=== PATIENT | male | born 1945 | race Caucasian/White ===

== ENCOUNTER 2020-08-22 06:04 | Day surgery (SDC) | payer MEDICARE, MEDICAID ==
[2020-08-21 16:48] LABS: BASOPHILS % (AUTO) 0.8 % (0-1); EOSINOPHILS # (AUTO) 0.1 X10'3 (0-0.9); HEMATOCRIT 44.9 % (42.0-52.0); HEMOGLOBIN 14.7 g/dl (14.0-17.9); LYMPHOCYTES # (AUTO) 1.6 X10'3 (1.1-4.8); LYMPHOCYTES % (AUTO) 27.4 % (21-51); MEAN CORPUSCULAR HEMOGLOBIN 26.7 PG (27.0-31.0); MEAN CORPUSCULAR HGB CONC 32.7 g/dL (33.0-36.5); MEAN CORPUSCULAR VOLUME 81.7 FL (78-98); MEAN PLATELET VOLUME 8.9 FL (7.4-10.4); MONOCYTES # (AUTO) 0.6 X10'3 (0-0.9); NEUTROPHILS # (AUTO) 3.6 X10'3 (1.8-7.7); NEUTROPHILS % (AUTO) 60.8 % (42-75); PLATELET COUNT 157 X10'3 (140-440); RED BLOOD COUNT 5.49 X10'6 (4.70-6.10)
[2020-08-21 16:51] LABS: ALBUMIN 3.8 G/DL (3.4-5.0); ANION GAP 8 (8-16); BLOOD UREA NITROGEN 23 MG/DL (7-18); BUN/CREATININE RATIO 20.5 (5.4-32.0); CALCIUM 9.5 MG/DL (8.5-10.1); CHLORIDE 103 MMOL/L (99-107); CREATININE 1.12 MG/DL (0.60-1.10); GLUCOSE 94 MG/DL (70-104); POTASSIUM 4.5 MMOL/L (3.5-5.1); SODIUM 140 MMOL/L (135-145); TOTAL CARBON DIOXIDE 29.1 MMOL/L (24-32); eGFR 64 ML/MIN
[2020-08-21 16:53] LABS: PARTIAL THROMBOPLASTIN TIME 34 SECONDS (22-32)
[2020-08-21 18:04] LABS: ANISOCYTOSIS 2+; ELLIPTOCYTES 1+; PLATELET ESTIMATE NORMAL
[2020-08-21 18:05] LABS: SPHEROCYTES 1+
[2020-08-22] VITALS (12 sets, daily range): BP systolic 125–141; BP diastolic 67–95
[~2020-08-22] VITALS: Ht 172.7 cm; Wt 85.6 kg
[~2020-08-22 06:04] MED LIST: AMIO200T61 PO; ATOR40TA PO; CARV-50 PO; DABI150C PO; FURO-150 PO; Levothyroxine Sodium PO; OMEG1CAP54 PO; POTA20TA19 PO; TADA5TAB2 PO; VALS40TA2 PO
[2020-08-22] MEDS ORDERED: diphenhydrAMINE 25mg capsule PO PRN (06:35)
[2020-08-22] MEDS ORDERED: acetylcysteine 200 MG/ml 4ml vial PO PRN (06:35)
[2020-08-22] MEDS ORDERED: normal saline 1,000 ML IV SCH ×2 (06:35→09:55)
[2020-08-22] MEDS ORDERED: LORazepam 0.5 MG tablet PO PRN (06:35)
[2020-08-22] MEDS ORDERED: SACU1TAB7 PO (06:59)
[2020-08-22] MEDS ORDERED: CHOL10008 PO (06:59)
[2020-08-22] MEDS ORDERED: LEVO125T PO (06:59)
[2020-08-22] MEDS ORDERED: FURO-149 PO (06:59)
[2020-08-22] MEDS ORDERED: Prevagen PO (06:59)
[2020-08-22] MEDS ORDERED: LIDOcaine/PRILOcaine 5gm cream TP ONE (07:00)
[2020-08-22] MEDS ORDERED: iohexol 350 MG/ML 50ML vial IV ONE (07:09)
[2020-08-22] MEDS ORDERED: nitroGLYCERIN-Tridil 50MG/D5W 250 ML IV ONE (07:09)
[2020-08-22] MEDS ORDERED: iohexol 350MG/ML 100ml bottle IV ONE (07:09)
[2020-08-22] MEDS ORDERED: heparin 1,000unit/ml 10ml vial 10 ML ONE (07:09)
[2020-08-22] MEDS ORDERED: fentaNYL/PF 50MCG/1 ML 2ML syringe ONE (07:09)
[2020-08-22] MEDS ORDERED: verapamil 2.5 mg/ml inj IV ONE (07:09)
[2020-08-22] MEDS ORDERED: LIDOcaine 1% (10mg/ml)w/preservative injection 20ml MDV ONE (07:09)
[2020-08-22] MEDS ORDERED: midazolam 2 mg/2 ml injection ONE (07:09)
[2020-08-22] MEDS ORDERED: APIX2.5T PO (07:15)
[2020-08-22] MEDS ORDERED: FLU VACC QS2020-21(6MOS UP)/PF 60 MCG/0.5 ML SYRINGE IMVAC ONE (08:00)
[2020-08-22] MEDS ORDERED: pneumococcal 23-VAL P-sac vacc 25 mcg/0.5ml vial IMVAC ONE (08:00)
--- NOTE | 2020-08-22 08:00 | NUR ---
Pt states no issues voiding. Urine clear and yellow, normal odor Addendum: 08/22/20 at 1120 by Deisi ROBERT Amended: Links added.
[2020-08-22 08:49] LABS: ISTAT HGB ART 14.6 g/dl (14.0-18.0); ISTAT Hct ART 43 %PCV (42-52); ISTAT O2 SATURATION ARTERIAL 94 % (95-98); ISTAT SOURCE ART
== END 2020-08-22 15:13 | disposition home or self-care (01) ==
LOC: SSTAY O 06:04
PROVIDERS: ATTEND Internal Medicine Cardiovascular Disease
DX: R94.39 Abnormal result of other cardiovascular function study (principal); I25.10 Atherosclerotic heart disease of native coronary artery without angina pectoris; I50.22 Chronic systolic (congestive) heart failure; I42.0 Dilated cardiomyopathy; I48.0 Paroxysmal atrial fibrillation; I27.29 Other secondary pulmonary hypertension; E78.49 Other hyperlipidemia; Z79.899 Other long term (current) drug therapy; Z98.890 Other specified postprocedural states; Z95.810 Presence of automatic (implantable) cardiac defibrillator; Z80.9 Family history of malignant neoplasm, unspecified
CPT/HCPCS: 36415; 80048; 82803; 85014; 85025; 85610; 85730; 93005; 93460; 99152; 99153; C1769; C1894; J1644; J2001; J2250; J3010; J7030; Q0163; Q9967; 85008; A4620; A5120; C1751; J3490